=== PATIENT | female | born 1970 | race Caucasian/White ===

== ENCOUNTER 2017-08-10 12:44 | Inpatient (IN) | payer OTHER ==
[~2017-08-10] VITALS: Ht 175.3 cm; Wt 101.6 kg
--- NOTE | ~2017-08-10 | OR ---
Unit #: [id number] #: [id number] Patient: KATERINE BALLARD [id number] [facility]. [address] [place], [place] [address] [id number] Kei MR#: [id number] NAME: KATERINE BALLARD ROOM: 224 Date of Procedure: 08/11/2017 Admission Date: 08/10/2017 Surgeon: Harjinder Eden Jr., M.D. : 1970 Attending Physician: Sanjeev Posadas M.D. Primary Care Physician: Primary Care Physician No OPERATIVE REPORT INDICATIONS FOR PROCEDURE The patient is a 46-year-old white female, who presented complaining of an abscess of the left upper arm just above the antecubital fossa. She denies any injections, but her toxicity on her blood did check up positive for 3 narcotics. It was felt that she needed I and D of this abscess along with sharp excisional debridement. She is brought to the operating room at this time for this procedure. She understands the procedure including the risks, including that of nerve injury, bleeding, recurrent infections, and chronic pain, and consents. PREOPERATIVE DIAGNOSIS Abscess, left upper arm probably secondary to injection. POSTOPERATIVE DIAGNOSIS Abscess, left upper arm probably secondary to injection, noting small abscess approximately a 1 cm or so in diameter. This did extend deeper down towards the fascia of the muscle. ANESTHESIA General with LMA. PROCEDURES PERFORMED Incision, drainage, and sharp excisional debridement using #10 blade scalpel of abscess of the left upper arm. DESCRIPTION OF PROCEDURE The patient was positioned in supine position. After being anesthetized, she was prepped and draped in routine fashion for incision and drainage and excisional debridement of the abscess of left upper arm. This was anterior. A transverse incision was made over the most indurated fluctuant portion of the wound and a small amount of pus probably 2 to 3 mL were then obtained. Cultures were sent for the bacteria for both aerobic and anaerobic organisms. Additional portion of skin was then removed inferior and hemostasis was achieved with the Bovie cautery. There was one vein bleeding that was ligated with 2-0 Vicryl stitch. After the wound was irrigated, additional fragments of tissue removed down to the fascia of the muscle with a #10 blade scalpel and from the surrounding fat. Hemostasis was again achieved with the Bovie cautery. The wound was irrigated and then packed open with saline moist dry dressings. Sterile dressings were applied externally. Estimated blood loss less than 20 mL. The patient received less than 600 mL crystalloid solution during the procedure. Sponges and instrument counts were correct x3. No drains used. No complications. The patient was taken to the Unit #: [id number] #: [id number] Patient: [facility] room with stable vital signs in satisfactory condition. Dictated by... Harjinder Eden Jr., M.D. JMB/edna TD: 08/11/2017 12:36 JOB #: [id number] OPERATIVE REPORT Page 1 of 1 X Harjinder Eden MD X PROCEDURE OPERATIVE NOTE
--- NOTE | ~2017-08-10 | US140 ---
[facility] A Service of [facility] RADIOLOGY TEXT RESULTS PATIENT: KATERINE BALLARD LOCATION: [facility] : [birth year] UNIT #: [id number] AGE: [address]: Sanjeev Posadas MD SEX: F ORDER DR: [id number] [facility] [address] [facility]. [place], [place] [address] [id number] MR#: [id number] Acc #: [id number] NAME: KATERINE BALLARD : 1970 SEX: F STUDY DATE/TIME: 08/10/2017 15:09 UNIT: C2A ROOM: 224 STUDY DESCRIPTION: US UE Veins Unilat or Ltd Stdy Attending Physician: Sanjeev Posadas M.D. Ordering Physician: Gabriela Wright M.D. Primary Care Physician: Primary Care Physician No MEDICAL IMAGING REPORT This report is preliminary unless electronic signature is present EXAM Left upper extremity venous ultrasound HISTORY Left upper extremity pain and swelling and redness for 2 days. FINDINGS Ultrasound examination of the left upper extremity veins was performed with castillo-scale, color Doppler and spectral Doppler evaluation The veins are patent and compressible. No DVT or SVT. There is an approximately 1 cm, primarily hypoechoic slightly lobulated superficial subcutaneous nodule in the lateral distal upper arm, near the proximal antecubital fossa. This could be a small hematoma or other nonspecific complex fluid collection. IMPRESSION 1. No DVT or SVT in the left upper extremity. 2. Approximately 1 cm superficial slightly lobulated oval hypoechoic lesion in the distal upper arm along the proximal and lateral margins of the antecubital fossa. This is nonspecific. Considerations include organizing hematoma or other nonspecific complex fluid collection. Dictated by... Francesco Hester M.D. THIS IS AN ELECTRONICALLY VERIFIED REPORT Francesco Hester M.D. at 08/11/2017 2:26 PM DFL/cmm [facility] A Service of [facility] RADIOLOGY TEXT RESULTS PATIENT: KATERINE BALLARD LOCATION: [facility] : 68 UNIT #: [id number] AGE: [address]: Sanjeev Posadas MD SEX: F ORDER DR: TD: 08/11/2017 10:22 JOB #: [id number] MEDICAL IMAGING REPORT Page 1 of 1 COPY
--- NOTE | ~2017-08-10 | HP ---
Unit #: [id number] #: [id number] Patient: KATERINE BALLARD [id number] [address] [address] [id number] I MR#: [id number] NAME: KATERINE BALLARD ROOM: 29802 Age: 46 Sex: F Admission Date: 08/10/2017 : 1970 Attending Physician: Nela Brown M.D. HISTORY AND PHYSICAL CHIEF COMPLAINT Left arm swelling. HISTORY OF PRESENT ILLNESS The patient is a 46-year-old female with no significant past medical history who presented to the emergency department for evaluation of the above. The patient states that her left arm was "sore" yesterday. This morning, she woke with increasing pain, swelling, and redness. She denies any fever. No cough or cold symptoms. No vomiting or diarrhea. 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 She denies IV drug use. However, tox screen is positive for opiates, cocaine, and amphetamine. She was given vancomycin in the emergency department, as well as Tdap. She is being admitted to [facility] for evaluation and further treatment. PAST MEDICAL HISTORY The patient denies hospitalizations. PAST SURGICAL HISTORY . SOCIAL HISTORY The patient lives with her . She smokes a pack of cigarettes daily. She reports occasional alcohol use. She works as a dog obedience instructor. She denies illicit drug use, but as stated above, tox screen was positive for cocaine, amphetamine, and opiates. FAMILY HISTORY Notable for her dad having lung cancer. Her mother had breast cancer. ALLERGIES No known allergies. HOME MEDICATIONS None. REVIEW OF SYSTEMS A complete review of systems is negative except as indicated in the HPI. PHYSICAL EXAMINATION VITAL SIGNS: Temperature is 97.6, pulse 81, respirations 16, blood Unit #: [id number] #: [id number] Patient: KATERINE BALLARD pressure 160/93, oxygen saturation 98% on room air. GENERAL: The patient is a female who is awake, alert, in no acute distress. HEENT: Head is atraumatic. Mucous membranes are moist. NECK: Supple. Trachea is midline. CARDIOVASCULAR: Regular rate and rhythm. LUNGS: Clear to auscultation bilaterally with no increased work of breathing. ABDOMEN: Soft and nontender with bowel sounds present in all four quadrants. EXTREMITIES: The left upper extremity in the region of the antecubital fossa and distal arm demonstrates an area of erythema, warmth, and tenderness to palpation. There is induration in this region. The patient does appear to have track rider. She does have a 2+ radial pulse. There is no pedal edema. NEUROLOGIC: The patient is awake and alert. She follows commands. PSYCHIATRIC: Mood and affect are normal. Patient is cooperative. SKIN: Skin of examined areas demonstrates the previously-described abnormalities. DIAGNOSTIC STUDIES LABORATORY: Urine tox screen positive for cocaine, amphetamines, and opiates. Complete blood count is essentially normal. Urinalysis is essentially negative. Lactic acid is 1. Basic metabolic panel is normal. IMAGING: Left upper extremity venous Doppler is negative for DVT. However, there is a lobulated hypoechoic area suggestive of fluid collection. ASSESSMENT The patient is a 46-year-old female with: 1. Left upper extremity abscess/cellulitis. The patient received vancomycin in the emergency department. 2. Polysubstance abuse with toxicology screen positive for cocaine, amphetamine, and opiates. 3. Tobacco abuse. PLAN 1. Admit to med/surg. 2. Healthy-heart diet. 3. N.p.o. after midnight for possible surgical intervention. 4. Normal saline at 75 mL/hour. 5. Blood cultures x2. 6. Vancomycin IV pending further workup. 7. P.r.n. Tylenol. 8. P.r.n. Toradol. 9. P.r.n. Zofran. 10. Consult [facility] regarding left upper extremity abscess. 11. Check HIV and hepatitis panel. 12. manager hvac/social work consult regarding polysubstance abuse. 13. Check LFTs. 14. SCDs for DVT prophylaxis. 15. Repeat labs in the morning. 16. Additional workup and consultants based on above. 1. Dictated by Unit #: [id number] #: [id number] Patient: KATERINE BALLARD M.D. DONN/larisa TD: 08/10/2017 18:54 JOB #: [id number] HISTORY AND PHYSICAL Page 1 of 1 X Nela Brown MD HISTORY AND PHYSICAL
--- NOTE | ~2017-08-10 | CO ---
Unit #: [id number] #: [id number] Patient: KATERINE ANN [id number] [address] [address] [id number] I MR#: [id number] NAME: KATERINE ANN ROOM: 224 Age: 46 Sex: F Admission Date: 08/10/2017 : 1970 Attending Physician: Sanjeev Posadas M.D. Primary Care Physician: Primary Care Physician No Consultation Date: 08/11/2017 CONSULTATION REPORT JOB NOTE: CC: HIPS PHYSICIAN. REASON FOR CONSULTATION Abscess, left upper extremity. HISTORY OF PRESENT ILLNESS Thank you very much for asking us to see Ms. Ann. She is a 46-year-old white female, who presented to the emergency room with a 2 to 3 day history of erythema, induration and swelling of her left upper extremity. It is primarily in the area just above her left antecubital fossa. She has had no fevers or chills. She denies any IV drug use. Her tox screen was positive for opiates, cocaine and amphetamines. She was started on vancomycin in the emergency room and received a tetanus immunization injection. Her noninvasive venous study of her left upper extremity revealed no evidence of DVT. PAST MEDICAL HISTORY Negative. PAST SURGICAL HISTORY . SOCIAL HISTORY The patient is positive for tobacco use, alcohol use. Denies illicit drug use, but had a positive tox screen for cocaine, amphetamines and opiates. FAMILY HISTORY Noncontributory. ALLERGIES No known medical allergies. HOME MEDICATIONS None. REVIEW OF SYSTEMS Negative except for above. IMMUNIZATION STATUS Unknown. PHYSICAL EXAMINATION GENERAL: Well-developed, well-nourished white female, in no apparent Unit #: [id number] #: [id number] Patient: KATERINE ANN distress. VITAL SIGNS: Afebrile. Vital signs stable. NECK: Supple. No thyromegaly or adenopathy. BACK: No CVA or spinous tenderness. HEENT: Sclerae nonicteric. Extraocular movements are intact. ABDOMEN: Flat, soft, and nontender. EXTREMITIES: Examination of her left upper extremity reveals erythema and induration in the area just above the left antecubital fossa. There was some erythema surrounding this area, but no induration or tenderness. DIAGNOSTIC STUDIES LABORATORY RESULTS: Reveal the patient to have a CMP that is normal. White count of 8.6 with hemoglobin of 14.5. Urinalysis is negative for nitrites, negative for leukocyte esterase. IMPRESSION A 46-year-old white female with a left upper extremity abscess. We have explained to the patient we recommend incision and drainage. All the risks and benefits of the procedure have been fully explained to the patient in detail including the risk of bleeding, infection, additional surgery, neurovascular injury, lymphedema, as well as other risks. She understands completely and requests to proceed with the current treatment plan. Dictated by... Norma Snyder/edna TD: 08/11/2017 06:47 JOB #: [id number] CC: [facility] CONSULTATION REPORT Page 1 of 1 X Roberto Wilson MD X CONSULTATION REPORT
--- NOTE | ~2017-08-10 | DS ---
Unit #: [id number] #: [id number] Patient: KATERINE BALLARD [id number] [address] [place], [place] [address] [id number] MR#: [id number] NAME: KATERINE BALLARD ROOM: 224 Age: 46 Sex: F Admission Date: 08/10/2017 : 1970 Discharge Date: 08/12/2017 Attending Physician: Sanjeev Posadas M.D. Primary Care Physician: Primary Care Physician No DISCHARGE SUMMARY REASON FOR ADMISSION Left arm swelling/abscess. HISTORY OF PRESENT ILLNESS The patient is a 46-year-old female with a history of polysubstance abuse, no other medical history, who presented secondary to left arm upper extremity swelling. 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 She adamantly denied any IV drug abuse; however, initial urine tox screen was positive for opioids, cocaine, and amphetamine. She was initially given IV antibiotics including vancomycin in the emergency room and we placed consultation to [facility] for evaluation. She was noted to have an abscess on left upper arm just above the antecubital fossa. Recommendation was made for I and D of the aforementioned abscess. The patient was appropriately taken to OR. Please see procedure operative note from 08/11/2017 for details. Postoperatively, the patient otherwise has done well. This morning, her white count is 6.3, hemoglobin 13.3. Her pain seems reasonably controlled. Her initial wound cultures positive for Staphylococcus aureus. Sensitivities are currently pending. The patient states that she will follow up with her new primary care provider Dr. Racquel Valero at [facility] within 7 to 10 days. She will also be following up with Dr. Eden within 1 week. Home health services will follow at time of discharge, and she states that she wishes to go home. FINAL DISCHARGE DIAGNOSES 1. Left arm abscess. 2. Substance abuse, positive for cocaine, amphetamines as well as opioids. FINAL DISCHARGE MEDICATIONS Lortab 7.5/325 one tablet p.o. q.4h p.r.n. #[address] Villanueva, doxycycline 100 mg p.o. b.i.d. x7 days. DISCHARGE CONDITION Stable. DISCHARGE DISPOSITION Unit #: [id number] #: [id number] Patient: KATERINE BALLARD Home. Home health services to follow up at time of discharge. Dictated by... Norma Perkins/edna TD: 08/13/2017 16:53 JOB #: [id number] DISCHARGE SUMMARY Page 1 of 1 X Sanjeev Posadas MD X DISCHARGE SUMMARY
[~2017-08-10 12:44] MED LIST: BENTYL10 MG PO; PHENERGAN12.5 M1 PR; PHENERGAN25 MG PO
[2017-08-10 14:37] LABS: URINE SOURCE CLEAN CATCH
[2017-08-10 14:41] LABS: URINE APPEARANCE CLEAR; URINE BILIRUBIN NEG (NEG); URINE BLOOD NEG (NEG); URINE COLOR YELLOW; URINE GLUCOSE NEG (NEG); URINE KETONE NEG (NEG); URINE LEUKOCYTE ESTERASE NEG (NEG); URINE NITRATE NEG (NEG); URINE PH 5.5 (5-8); URINE PROTEIN NEG (NEG); URINE UROBILINOGEN 0.2 MG/DL (NEG)
[2017-08-10 14:52] LABS: AMPHETAMINE POS (NEG); BARBITURATES NEG (NEG); BENZODIAZEPINES NEG (NEG); COCAINE POS (NEG); MARIJUANA NEG (NEG); OPIATES POS (NEG); TRICYCLIC ANTIDEPRESSANTS NEG (NEG); U METHADONE NEG (NEG)
[2017-08-10 14:56] LABS: BASOPHIL% 0.4 % (0-2.5); EOSINOPHIL# 0.1 X10e3 (0-0.7); EOSINOPHIL% 1.4 % (0.0-7.0); HEMATOCRIT 42.7 % (35.0-45.0); HEMOGLOBIN 14.5 gm/dL (12.0-16.0); LYMPHOCYTE# 1.9 X10e3 (1.0-3.5); LYMPHOCYTE% 21.9 % (17.0-45.0); MEAN CELL VOLUME 96.6 FL (83-96); MEAN CORPUSCULAR HEMOGLOBIN 32.8 PG (28-34); MEAN CORPUSCULAR HGB CONC 33.9 g/dL (30-36); MONOCYTE# 0.6 X10e3 (0-1.0); MONOCYTE% 7.2 % (3.0-12.0); NEUTROPHIL% 69.1 % (40-75); PLATELET COUNT 219 X10e3 (140-420); RED BLOOD COUNT 4.42 X10e (3.90-5.30); RED CELL DISTRIBUTION WIDTH 14.6 % (11.0-15.5); WHITE BLOOD COUNT 8.6 X10e3 (4.0-10.5)
[2017-08-10 14:58] LABS: DIFF IND NO
[2017-08-10 15:10] LABS: CULTURE INDICATED? NO
[2017-08-10 15:28] LABS: BUN/CREATININE RATIO 12.22; CALCIUM SERUM 8.8 mg/dL (8.4-10.2); CREATININE SERUM 0.9 mg/dL (0.6-1.4); GLOM FILT RATE Estimated 76.2 mL/min (>60); POTASSIUM 3.7 mmol/L (3.5-5.1)
[2017-08-10] MEDS ORDERED: NO MEDICATIONS (17:36)
[2017-08-10 19:43] LABS: ALBUMIN SERUM 3.7 g/dL (3.5-5.0); BILIRUBIN, DIRECT 0.1 mg/dL (0.0-0.2); BILIRUBIN,INDIRECT 0.3 mg/dL (0.0-0.9); BILIRUBIN,TOTAL 0.4 mg/dL (0.2-2.0); PROTEIN TOTAL SERUM 6.7 g/dL (6.0-8.3)
[2017-08-11 06:41] LABS: BASOPHIL% 0.3 % (0-2.5); EOSINOPHIL# 0.2 X10e3 (0-0.7); EOSINOPHIL% 2.7 % (0.0-7.0); HEMATOCRIT 38.8 % (35.0-45.0); HEMOGLOBIN 13.1 gm/dL (12.0-16.0); LYMPHOCYTE# 1.7 X10e3 (1.0-3.5); LYMPHOCYTE% 21.9 % (17.0-45.0); MEAN CELL VOLUME 96.4 FL (83-96); MEAN CORPUSCULAR HEMOGLOBIN 32.5 PG (28-34); MEAN CORPUSCULAR HGB CONC 33.7 g/dL (30-36); MEAN PLATELET VOLUME 8.5 FL (6.5-11.5); MONOCYTE# 0.6 X10e3 (0-1.0); MONOCYTE% 8.1 % (3.0-12.0); NEUTROPHIL# 5.2 X10e3 (1.5-7.1); PLATELET COUNT 202 X10e3 (140-420); RED BLOOD COUNT 4.02 X10e (3.90-5.30); RED CELL DISTRIBUTION WIDTH 14.7 % (11.0-15.5); WHITE BLOOD COUNT 7.7 X10e3 (4.0-10.5)
[2017-08-11 06:43] LABS: DIFF IND NO
[2017-08-11 07:24] LABS: ALBUMIN SERUM 3.1 g/dL (3.5-5.0); BILIRUBIN,TOTAL 0.5 mg/dL (0.2-2.0); CALCIUM SERUM 8.2 mg/dL (8.4-10.2); CREATININE SERUM 0.5 mg/dL (0.6-1.4); GLOM FILT RATE Estimated 115.3 mL/min (>60); POTASSIUM 3.9 mmol/L (3.5-5.1); PROTEIN TOTAL SERUM 5.8 g/dL (6.0-8.3)
[2017-08-11 07:55] LABS: PROTHROMBIN TIME (PATIENT) 10.4 SECONDS (10.0-11.7)
[2017-08-12 03:53] LABS: HEMATOCRIT 39.6 % (35.0-45.0); HEMOGLOBIN 13.3 gm/dL (12.0-16.0); MEAN CELL VOLUME 97.5 FL (83-96); MEAN CORPUSCULAR HEMOGLOBIN 32.7 PG (28-34); MEAN CORPUSCULAR HGB CONC 33.5 g/dL (30-36); MEAN PLATELET VOLUME 8.1 FL (6.5-11.5); RED BLOOD COUNT 4.07 X10e (3.90-5.30); RED CELL DISTRIBUTION WIDTH 14.4 % (11.0-15.5); WHITE BLOOD COUNT 6.3 X10e3 (4.0-10.5)
[2017-08-12 04:32] LABS: CALCIUM SERUM 8.2 mg/dL (8.4-10.2); CREATININE SERUM 0.8 mg/dL (0.6-1.4); GLOM FILT RATE Estimated 87.9 mL/min (>60); POTASSIUM 4.3 mmol/L (3.5-5.1)
[2017-08-12] MEDS ORDERED: LORTAB 7.5-3251 EACH PO (11:06)
[2017-08-12] MEDS ORDERED: DOXYCYCLINE HY100 M3 PO (11:08)
[2017-08-12 15:51] LABS: HA AB IGM (HEPPAN) Nonreactive (()); HB CORE AB IGM (HEPPAN) Nonreactive (Nonreactive); HB S AG (HEPPAN) Nonreactive (Nonreactive); HEP C AB (HEPPAN) Nonreactive (Nonreactive)
== END 2017-08-12 12:44 | disposition home or self-care (01) | DRG 572 ==
LOC: CED 12:44 → CEDOF 18:20 → C2A 18:20 → CEDOF 18:33 → CED 18:33 → C2A 08-11 03:05 → CEDOF 08-11 03:05 → C2A 08-11 07:31
PROVIDERS: Emergency Medicine; Family Medicine; Surgery
PROC: 05LY0ZZ Occlusion of Upper Vein, Open Approach (ICD-10-PCS; 2017-08-11)
PROC: 0JBF0ZZ Excision of Left Upper Arm Subcutaneous Tissue and Fascia, Open Approach (ICD-10-PCS; principal; 2017-08-11 10:00)
DX: L02.414 Cutaneous abscess of left upper limb (principal); F11.10 Opioid abuse, uncomplicated; F17.210 Nicotine dependence, cigarettes, uncomplicated; F15.10 Other stimulant abuse, uncomplicated; F14.10 Cocaine abuse, uncomplicated; Z80.3 Family history of malignant neoplasm of breast; Z80.1 Family history of malignant neoplasm of trachea, bronchus and lung
CPT/HCPCS: 36415; 80048; 80053; 80074; 80076; 80202; 80307; 81003; 83605; 84703; 85025; 85027; 85610; 87040; 87070; 87075; 87077; 87186; 87205; 87806; 90715; 93971; 96365; 99285; J1170; J1885; J2250; J2270; J2405; J3010; J3370